=== PATIENT | male | born 1990 | race Caucasian/White ===

== ENCOUNTER 2025-10-19 07:31 | Emergency (ER) | payer OTHER, SELFPAY ==
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
[2025-10-19 07:37] VITALS: BP 204/159; PULSE 68; RESP 20; TEMP 36.9; O2SAT 98
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
[2025-10-19] MEDS: Ibuprofen 800 MG TAB PO (07:54)
[2025-10-19] MEDS: Acetaminophen 500 MG TAB 1000 MG PO (07:54)
[2025-10-19 08:31] VITALS: BP 169/122; PULSE 89; RESP 18; O2SAT 99
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
--- NOTE | 2025-10-19 16:25 | NUR.NOTE ---
Access chart to print the demographic sheet for [facility] billing requisition. Nursing Note:
== END 2025-10-19 08:24 | disposition home or self-care (01) ==
LOC: ER 08:35
PROVIDERS: Emergency Provider General Practice
DX: M79.604 Pain in right leg (principal); M25.531 Pain in right wrist; I10 Essential (primary) hypertension; R51.9 Headache, unspecified; V47.5XXA Car driver injured in collision with fixed or stationary object in traffic accident, initial encounter
CPT/HCPCS: 99284 ×2; 73110; 73590